=== PATIENT | female | born 1995 | race Caucasian/White ===

== ENCOUNTER 2017-01-23 12:53 | Emergency (ER) | payer MEDICAID, OTHER ==
[2017-01-23 13:12] VITALS: BP 127/85; PULSE 96; RESP 18; TEMP 98.1
--- NOTE | 2017-01-23 13:29 | C.PDOC ---
History Of Present Illness 22 yo female come in for evaluation of Right wrist pain developed since last night when sustained mechanical fall. Pt sts, " sustained awkward fall while going up stairs at 5AM today". Pt sts, woke up with moderate pain over Right wrist. Otherwise, denies head injury, LOC, syncope, headache, neck pain, denies deformity, sensory or vascular deficits to B/L UEs and LEs. 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 Time Seen by Provider: 01/23/17 13:06 Chief Complaint (Nursing): Finger,Hand,&Wrist History Per: Patient Past Medical History Reviewed: Historical Data, Nursing Documentation, Vital Signs Vital Signs: Last Vital Signs Temp 98.1 F 01/23/17 13:07 Pulse 96 H 01/23/17 13:07 Resp 18 01/23/17 13:07 BP 127/85 01/23/17 13:07 Pulse Ox 99 01/23/17 13:30 - Medical History PMH: Asthma Other Surgeries: not contributory Family History: States: No Known Family Hx - Social History Hx Tobacco Use: No Hx Alcohol Use: Yes Hx Substance Use: No - Immunization History Hx Tetanus Toxoid Vaccination: No Hx Influenza Vaccination: Yes Hx Pneumococcal Vaccination: No Review Of Systems Except As Marked, All Systems Reviewed And Found Negative. Eyes: Negative for: Vision Change Gastrointestinal: Negative for: Nausea, Vomiting Genitourinary: Negative for: Incontinence Musculoskeletal: Positive for: Hand Pain (Right wrist pain) Neurological: Negative for: Weakness, Numbness, Altered Mental Status Physical Exam - Physical Exam Appears: Well, Non-toxic, No Acute Distress Skin: Normal Color, Warm, No Rash Head: Normacephalic Neck: No Midline Cervical Tenderness, No Paracervical Tenderness, No Step Off Deformity, Supple Back: No Vertebral Tenderness Extremity: Normal ROM (remainder exam of B/L UEs and LEs- normal.), Tenderness ( tenderness over voral aspect dostal forearm with trace ecchymoses. Mild discomfort on FAROM of Right wrost due to pain, NO palpable deformity, no neurovascular deficist distally to injury.) ED Course And Treatment O2 Sat by Pulse Oximetry: 99 Progress Note: On re-evaluation, pt is afebrile, hemodynamicaly stable. Non- toxic. Ambulatory in ED with stable gait. head: AT/NC. neck: (-) midline tenderness. RUE: exam c/w wrist sprain. NO deformity, no weakness, no neurovascular deficist distally to injury. Xray review (-)acute fx or dislocation. SPlint applied to wrist. Pt advised and ref. to F/u with Ortho in 2-3 days for re-eavl. return if any new changes. Orthopedic Time Performed: 13:31 Time Out: Side verified, Site verified, Patient ID confirmed Procedure: Splint Type: Volar Location: Right, Wrist Consent obtained: Verbal Performed by: Mid-level Provider Diagnosis: Sprain Disposition Counseled Patient/Family Regarding: Studies Performed, Diagnosis, Need For Followup, Rx Given - Disposition Referrals: Ryan Grigsby MD [Staff Provider] - [facility] [Outside] Disposition: HOME/ ROUTINE Disposition Time: 13:34 Condition: STABLE Additional Instructions: Splint for 2 weeks Ibuprofen for pain Follow up with PMD in 2-3 days for re-evaluation. return to ED if any worsening or new changes. Prescriptions: Ibuprofen [Motrin Tab] 600 mg PO Q6 #20 tab Instructions: Wrist Sprain (ED), Wrist Injury (ED) - Clinical Impression Clinical Impression: Wrist sprain
[2017-01-23 13:55] VITALS: O2SAT 97
--- NOTE | 2017-01-23 16:55 | RAD ---
PROCEDURE: Right Wrist Radiographs. HISTORY: injury COMPARISON: None. FINDINGS: BONES: Normal. No fracture. JOINTS: Normal. No dislocation. SOFT TISSUES: Normal. OTHER FINDINGS: None. IMPRESSION: Normal right wrist radiographs.
== END 2017-01-23 13:54 | disposition home or self-care (01) ==
LOC: C.ER 12:53
DX: S63.501A Unspecified sprain of right wrist, initial encounter (principal); W10.8XXA Fall (on) (from) other stairs and steps, initial encounter; Y93.89 Activity, other specified; Y92.008 Other place in unspecified non-institutional (private) residence as the place of occurrence of the external cause